=== PATIENT | female | born 1960 | race Caucasian/White ===

== ENCOUNTER → 2017-06-01 | Outpatient (CLI) | payer MEDICARE, OTHER ==
[2016-03-05 10:22] VITALS: BP 124/50
[~2017-06-01] MED LIST: ALBU1.25 IH; ALBU2.5V14 NEB; AMIO200T2 PO; AMLO10TA2 PO; AZIT250T6 PO; CARV12.52 PO; CARV25TA PO; CARV3.12 PO; CARV6.25 PO; CYCL10TA2 PO; DIGO125T PO; DOXY100C2 PO; FLUT1DIS5 IH; FURO-68 PO; FURO-69 PO; FURO40TA4 PO; FURO80TA3 PO; FURO80TA72 PO; GABA-586 PO; GABA600T2 PO; HYDR-2766 PO; HYDR-963 PO; Hydrocodone/Acetaminophen PO; IPRA4AER IH; LACT10SO PO; LACT10SO26 PO; LEVO500T59 PO; LISI-334 PO; LISI-338 PO; METO-239 PO; METO2.5T PO; NAPR500T PO; NITR100C6 PO; OMEP20CA9 PO; OMEP40CA5 PO; POTA20TA4 PO; PRED-220 PO; PRED20TA PO; PREG75CA PO; RIVA20TA2 PO; Sulfamethoxazole/Trimethoprim PO
--- NOTE | 2017-06-01 15:17 | CARD ---
APPROVED REPORT EXAM: Two-dimensional and M-mode echocardiogram with Doppler and color Doppler. Other Information Quality : FairHR: 82bpm Rhythm : NSR INDICATION Atrial Fibrillation RISK FACTORS Obesity 2D DIMENSIONS RVDd4.1 (2.9-3.5cm)Left Atrium(2D)3.7 (1.6-4.0cm) IVSd1.3 (0.7-1.1cm)Aortic Root(2D)2.9 (2.0-3.7cm) LVDd5.0 (3.9-5.9cm)LVOT Diameter2.4 (1.8-2.4cm) PWd1.2 (0.7-1.1cm)LVDs3.7 (2.5-4.0cm) FS (%) 25.4 %SV58.3 ml LVEF(%)49.8 (>50%) Aortic Valve LVOT Peak Hector.101.7cm/s Mitral Valve MV E Urbknkta27.7cm/sMV E Peak Gr.3mmHg MV DECEL [id number] A Ssxwepcn79.8cm/s MV E Mean Gr.2mmHgE/A Ratio0.8 MV A [id number] Pulmonary Valve PV Peak Imtysrid427.0cm/s Pulmonary Vein S1 Bruraoop49.6cm/sD2 [place]okwayds58.6cm/s PVa [id number] LEFT VENTRICLE The left ventricle is normal size. There is mild concentric left ventricular hypertrophy. The left ve ntricular systolic function is normal The Ejection Fraction is 55%. There is normal LV segmental wall motion. Transmitral Doppler flow pattern is Grade I-abnormal relaxation pattern. RIGHT VENTRICLE The right ventricle is normal size. There is normal right ventricular wall thickness. The right ventr icular systolic function is normal. ATRIA The left atrium size is normal. The right atrium size is normal. The interatrial septum is intact wit h no evidence for an atrial septal defect or patent foramen ovale as noted on 2-D or Doppler imaging. AORTIC VALVE The aortic valve is not well visualized but appears mildly calcified and opens adequately. Doppler an d Color Flow revealed no significant aortic regurgitation. There is no significant aortic valvular st enosis. MITRAL VALVE The mitral valve is not well visualized but opens adequately. There is no evidence of mitral valve pr olapse. There is no mitral valve stenosis. Doppler and Color Flow revealed no mitral valve regurgitat ion noted. TRICUSPID VALVE Doppler and Color Flow revealed trace tricuspid valve regurgitation. PULMONIC VALVE The pulmonary valve is not well visualized but appears to open adequately. Doppler and Color Flow rev ealed mild pulmonic valvular regurgitation. There is no pulmonic valvular stenosis by spectral Dopple r. GREAT VESSELS The aortic root is normal in size. The ascending aorta is normal in size. The pulmonary artery is not well visualized,unable to assess. The IVC is normal in size and collapses >50% with inspiration. PERICARDIAL EFFUSION There is no evidence of significant pericardial effusion. Critical Notification Critical Value: No <Conclusion> Technically difficult study. The left ventricular systolic function is normal The Ejection Fraction is 55%. There is normal LV segmental wall motion. Transmitral Doppler flow pattern is Grade I-abnormal relaxation pattern. Trace tricuspid valve regurgitation. There is no evidence of significant pericardial effusion.
== END | disposition home or self-care (01) ==
LOC: ECHO 14:07
PROVIDERS: ATTEND Internal Medicine Cardiovascular Disease
DX: I07.1 Rheumatic tricuspid insufficiency (principal); I48.91 Unspecified atrial fibrillation
CPT/HCPCS: 93306